=== PATIENT | female | born 1995 | race Hispanic/Latino ===

== ENCOUNTER 2017-02-13 08:08 | Emergency (ER) | payer BC ==
[2017-02-13 08:15] VITALS: BMI 21.2
[2017-02-13] MEDS ORDERED: Sodium Chloride 0.9% 1,000 ML IV STA (08:32)
--- NOTE | 2017-02-13 08:35 | ED PDOC ---
HPI: Female Pain Time Seen by Provider: 02/13/17 08:17 Chief Complaint (Nursing): Back Pain Chief Complaint (Provider): right flank pain History Per: Patient History/Exam Limitations: no limitations Onset/Duration Of Symptoms: Mins (prior to arrival ) Additional Complaint(s): Chantal Ghotra is a 21 year old female, with a previous medical history of kidney stones, who presents to the ED with complaints of right flank pain associated with dysuria, frequency and nausea ongoing since this morning. Patient reports symptoms are consistent with previous symptoms of kidney stones. she denies any fever or chills. PMD: none provided Abnormal Vaginal Bleeding: No Past Medical History Reviewed: Historical Data, Nursing Documentation, Vital Signs Vital Signs: Last Vital Signs Temp 97 F L 02/13/17 08:14 Pulse 64 02/13/17 08:14 Resp BP 113/69 02/13/17 08:14 Pulse Ox 98 02/13/17 08:14 - Medical History PMH: No Chronic Diseases - Surgical History Surgical History: No Surg Hx - Family History Family History: States: Unknown Family Hx - Home Medications Home Medications: Ambulatory Orders Medication Instructions Recorded Acetaminophen with Codeine 1 tab PO Q6H PRN #10 tab 02/13/17 [Tylenol with Codeine No. 3 300 mg-30 mg] Naproxen [Naprosyn] 500 mg PO BID PRN #15 tablet 02/13/17 Nitrofurantoin Macrocrystals 100 mg PO BID #14 cap 02/13/17 [Macrobid] Tamsulosin [Flomax] 0.4 mg PO DAILY #14 cap 02/13/17 - Allergies Allergies/Adverse Reactions: Allergies Allergy/AdvReac Type Severity Reaction Status Date / Time No Known Allergies Allergy Verified 02/13/17 08:24 Review of Systems ROS Statement: Except As Marked, All Systems Reviewed And Found Negative Constitutional: Negative for: Fever, Chills Gastrointestinal: Positive for: Nausea, Abdominal Pain. Negative for: Vomiting Genitourinary Female: Positive for: Dysuria, Frequency Musculoskeletal: Positive for: Back Pain (right flank ) Physical Exam - Reviewed Nursing Documentation Reviewed: Yes Vital Signs Reviewed: Yes - Physical Exam Appears: Positive for: Non-toxic, In Acute Distress (moderate painful) Head Exam: Positive for: ATRAUMATIC, NORMAL INSPECTION, NORMOCEPHALIC Skin: Positive for: Normal Color, Warm, DRY Eye Exam: Positive for: EOMI, Normal appearance, PERRL ENT: Positive for: Normal ENT Inspection Neck: Positive for: Normal, Painless ROM Cardiovascular/Chest: Positive for: Regular Rate, Rhythm Respiratory: Positive for: CNT, Normal Breath Sounds Gastrointestinal/Abdominal: Positive for: Normal Exam, Bowel Sounds, Soft. Negative for: Tenderness Back: Positive for: Normal Inspection. Negative for: L CVA Tenderness, R CVA Tenderness, Vertebral Tenderness Extremity: Positive for: Normal ROM Neurologic/Psych: Positive for: Alert, Oriented - Laboratory Results Result Diagrams: 02/13/17 08:52 02/13/17 08:52 - ECG O2 Sat by Pulse Oximetry: 98 (RA) Pulse Ox Interpretation: Normal - CT Scan/US CT abd/pelvis Other Rad Studies (CT/US): Radiology Report Reviewed (Right-sided nephrolithiasis as above. There is mild dilatation right ureter with an approximately 4 mm calcification in the expected region of the right UVJ. This probably represents represent UVJ calculus. Clinical correlation with urinalysis. Mild wall thickening urinary bladder likely due to incomplete distention however possibility of a cystitis not excluded. ) Medical Decision Making Medical Decision Making: Initial Plan: * CT abd & pelvis w/o contrast * labs * urine * urine dipstick * urinalysis * urine culture * PTT * PT * IV NS 1,000 ml at 1,000 ml/hr * toradol 15 mg IV * zofran 4 mg IV * reevaluation Scribe Attestation: Documented by Varsha Major, acting as a scribe for Varsha Jimenez MD. Provider Scribe Attestation: All medical record entries made by the Scribe were at my direction and personally dictated by me. I have reviewed the chart and agree that the record accurately reflects my personal performance of the history, physical exam, medical decision making, and the department course for this patient. I have also personally directed, reviewed, and agree with the discharge instructions and disposition. Disposition - Clinical Impression Clinical Impression: Ureteral calculus, UTI (urinary tract infection) - Patient ED Disposition Is Patient to be Admitted: No - Disposition Referrals: Vargas Carballo MD [Medical Doctor] - [facility] [Outside] Disposition: Routine/Home Disposition Time: 10:40 Condition: STABLE Prescriptions: Acetaminophen with Codeine [Tylenol with Codeine No. 3 300 mg-30 mg] 1 tab PO Q6H PRN #10 tab PRN Reason: Pain, Severe (8-10) Naproxen [Naprosyn] 500 mg PO BID PRN #15 tablet PRN Reason: Pain, Moderate (4-7) Nitrofurantoin Macrocrystals [Macrobid] 100 mg PO BID #14 cap Tamsulosin [Flomax] 0.4 mg PO DAILY #14 cap Instructions: Renal Colic (ED), Ureteral Stones (ED), Urinary Tract Infection in Women (ED)
[2017-02-13 08:59] LABS: BASO # 0.1 K/uL (0.0-0.2); BASO % 0.6 % (0.0-2.0); EOS # 0.2 K/uL (0.0-0.7); EOS % 2.5 % (0.0-4.0); HEMOGLOBIN 11.6 g/dL (12.0-16.0); LYMPH # 3.6 K/uL (1.0-4.3); LYMPH % 41.4 % (20.0-40.0); MEAN CELL VOLUME 85.8 fl (81.0-99.0); MEAN CORPUSCULAR HEMOGLOBIN 28.6 pg (27.0-31.0); MEAN CORPUSCULAR HGB CONC 33.3 g/dL (33.0-37.0); MEAN PLATELET VOLUME 7.7 fl (7.2-11.7); MONO # 0.8 K/uL (0.0-0.8); MONO % 9.4 % (0.0-10.0); NEUT % 46.1 % (50.0-75.0); NRBC % 0.1 % (0.0-0.0); RBC 4.07 Mil/uL (3.80-5.20); RED CELL DISTRIBUTION WIDTH 13.1 % (11.5-14.5); WHITE BLOOD COUNT 8.6 K/uL (4.8-10.8)
[2017-02-13 09:18] LABS: ALB/GLOB RATIO 1.3 (1.0-2.1); ALBUMIN 4.3 g/dL (3.5-5.0); ALT/SGPT 27 U/L (9-52); AST/SGOT 24 U/L (14-36); BLOOD UREA NITROGEN 17 mg/dl (7-17); CALCIUM 9.6 mg/dL (8.4-10.2); GFR AFRICAN-AMERICAN > 60; GFR NON-AFRICAN AMERICAN > 60
[2017-02-13 09:19] LABS: SQUAMOUS EPITHIAL 42 /hpf (0-5); URINE BACTERIA FEW (<OCC); URINE BILIRUBIN NEGATIVE (NEGATIVE); URINE BLOOD SMALL (NEGATIVE); URINE CLARITY CLOUDY (Clear); URINE COLOR YELLOW (YELLOW); URINE GLUCOSE (UA) NEG (Normal); URINE LEUKOCYTE ESTERASE SMALL Leu/uL (Negative); URINE NITRATE NEGATIVE (NEGATIVE); URINE PROTEIN 100 mg/dL (NEGATIVE); URINE UROBILINOGEN 0.2-1.0 mg/dL (0.2-1.0)
[2017-02-13] MEDS ORDERED: cefTRIAXone (Rocephin) 1 gm Inj ONE (09:54)
[2017-02-13 10:04] LABS: PARTIAL THROMBOPLASTIN TIME 28.5 Seconds (25.6-37.1)
--- NOTE | 2017-02-13 10:28 | CT ---
PROCEDURE: CT abdomen pelvis dated 02/13/2017 HISTORY: R flank pain COMPARISON: No prior. TECHNIQUE: Contiguous axial images of the abdomen and pelvis. Oral contrast was administered. No IV contrast given. Coronal and Sagittal reformats generated. Radiation dose: Total exam DLP = 363.33 mGy-cm. This CT exam was performed using one or more of the following dose reduction techniques: Automated exposure control, adjustment of the mA and/or kV according to patient size, and/or use of iterative reconstruction technique. FINDINGS: LOWER THORAX: Lung bases clear. LIVER: Liver is upper limits of normal/ borderline enlarged measuring just over 18 cm in CC dimension. No obvious hepatic mass collection or calcification. GALLBLADDER AND BILE DUCTS: Unremarkable. PANCREAS: Unremarkable. No mass. No ductal dilatation. SPLEEN: Unremarkable. No splenomegaly. ADRENALS: Unremarkable. KIDNEYS AND URETERS: There is an approximately 4.8 mm calculus within the mid to lower pole right renal collecting system. Few scattered punctate calcifications throughout the upper and lower pole collecting system also felt be present. There is very mild dilatation of the right ureter with an approximate 4 mm elliptical shaped calcification in the expected location of the right UVJ. Clinical correlation with urinalysis recommended. Note made of areas of increased attenuation along the pyramid regions of left kidney which could be secondary to hydration status however microcalcification not excluded. No obvious renal masses or collections. BLADDER: Urinary bladder is incompletely distended which may account for slight thick-walled appearance. Rule out cystitis. REPRODUCTIVE: Uterus and adnexal structures appear grossly unremarkable. APPENDIX: Normal-appearing appendix of best seen on coronal image number [id number]. No periappendiceal inflammatory changes. BOWEL: Evaluation of the bowel is limited due to the lack of oral contrast material. The the stomach is incompletely distended which may account for slight thick-walled appearance. Visualized loops of small bowel exhibit normal contour and caliber. No evidence of acute mechanical small bowel obstruction. . Moderate amount of stool seen throughout the colon consistent with mild fecal retention. No evidence of mural wall thickening. PERITONEUM: Unremarkable. No fluid collection. No free air. LYMPH NODES: Unremarkable. No enlarged lymph nodes. VASCULATURE: Unremarkable. No aortic aneurysm. BONES: No fracture or destructive lesion. OTHER FINDINGS: None. IMPRESSION: Right-sided nephrolithiasis as above. There is mild dilatation right ureter with an approximately 4 mm calcification in the expected region of the right UVJ. This probably represents represent UVJ calculus. Clinical correlation with urinalysis. Mild wall thickening urinary bladder likely due to incomplete distention however possibility of a cystitis not excluded. See above discussion for additional details and findings. Findings discussed with Dr. Jimenez at 10:25 a.m. with written down and read back verification.
[2017-02-13 11:16] VITALS: BP 122/68; PULSE 78; RESP 14; TEMP 98; O2SAT 100
== END 2017-02-13 11:08 | disposition home or self-care (01) ==
LOC: H.ER 08:08
DX: N20.2 Calculus of kidney with calculus of ureter (principal); N39.0 Urinary tract infection, site not specified
CPT/HCPCS: 74176; 80053; 81003; 81025; 85025; 85610; 85730; 87086; 96374; 96375; 99285; J0696; J1885; J2270; J2405; J7040

== ENCOUNTER 2017-02-16 10:12 | Emergency (ER) | payer BC ==
[2017-02-16 10:12] VITALS: BMI 21.2
[2017-02-16 10:36] VITALS: O2SAT 100
[2017-02-16] MEDS ORDERED: Sodium Chloride 0.9% 1,000 ML IV STA ×2 (10:53→13:48)
--- NOTE | 2017-02-16 11:22 | ED PDOC ---
HPI: Back Time Seen by Provider: 02/16/17 10:40 Chief Complaint (Nursing): Back Pain Chief Complaint (Provider): FLANK PAIN History Per: Patient (21 Y/O FEMALE HERE WITH RIGHT FLANK PAIN THAT BEGAN TODAY AM RADIATING TO RIGHT LOWER ABDOMEN. PATIENT WAS SEEN RECENTLY 02/13/2017 FOR RENAL COLIC. STATES SHE DID NOT HAVE REPEAT EPISODE OF PAIN UNTIL TODAY AM. DENIES ANY FEVERS/CHILLS. DID NOT MAKE APPT WITH UROLOGY OF YET.) Past Medical History Reviewed: Historical Data, Nursing Documentation, Vital Signs Vital Signs: Last Vital Signs Temp 97.0 F L 02/16/17 10:33 Pulse 61 02/16/17 10:33 Resp 19 02/16/17 10:33 BP 104/68 02/16/17 10:33 Pulse Ox 100 02/16/17 10:33 - Medical History PMH: Kidney Stones, Chronic Kidney Disease - Family History Family History: States: Unknown Family Hx - Home Medications Home Medications: Ambulatory Orders Medication Instructions Recorded Acetaminophen with Codeine 1 tab PO Q6H PRN #10 tab 02/13/17 [Tylenol with Codeine No. 3 300 mg-30 mg] Naproxen [Naprosyn] 500 mg PO BID PRN #15 tablet 02/13/17 Nitrofurantoin Macrocrystals 100 mg PO BID #14 cap 02/13/17 [Macrobid] Tamsulosin [Flomax] 0.4 mg PO DAILY #14 cap 02/13/17 Acetaminophen/Hydrocodone Bi 1 tab PO Q6 PRN #10 tab 02/16/17 [Vicodin 300 mg-5 mg] Naproxen [Naprosyn Tab] 375 mg PO Q8 PRN #21 tab 02/16/17 Tamsulosin [Flomax] 0.4 mg PO DAILY #14 cap 02/16/17 - Allergies Allergies/Adverse Reactions: Allergies Allergy/AdvReac Type Severity Reaction Status Date / Time No Known Allergies Allergy Verified 02/13/17 08:24 Review of Systems ROS Statement: Except As Marked, All Systems Reviewed And Found Negative Musculoskeletal: Positive for: Back Pain Physical Exam - Reviewed Nursing Documentation Reviewed: Yes Vital Signs Reviewed: Yes - Physical Exam Appears: Positive for: Well, Non-toxic, No Acute Distress Head Exam: Positive for: ATRAUMATIC, NORMAL INSPECTION, NORMOCEPHALIC Skin: Positive for: Normal Color, Warm, DRY Eye Exam: Positive for: EOMI, Normal appearance, PERRL ENT: Positive for: Normal ENT Inspection Neck: Positive for: Normal, Painless ROM Cardiovascular/Chest: Positive for: Regular Rate, Rhythm Respiratory: Positive for: CNT, Normal Breath Sounds Gastrointestinal/Abdominal: Positive for: Normal Exam, Bowel Sounds, Soft, Other (RIGHT CVA TENDERNESS.) Back: Positive for: Normal Inspection Extremity: Positive for: Normal ROM Neurologic/Psych: Positive for: Alert, Oriented - Laboratory Results Result Diagrams: 02/16/17 11:53 02/16/17 11:53 Urine POC: Negative Urine dip results: Negative for: Leukocyte Esterase, Blood, Nitrate, Ketones, Glucose, Bilirubin, Protein - ECG O2 Sat by Pulse Oximetry: 100 - Progress ED Course And Treament: OLD ED RECORDS REVIEWED: PATIENT NOTED TO HAVE 4MM ELLIPTICAL RENAL CALCULI RIGHT UVJ; URINE CX NEG; BUN/CREATININE WNL TORADOL 15 MG IV X 1 DOSE NS 1 LITER WIDE OPEN ZOFRAN 4 MG IV X 1 DOSE d/w Dr. Carballo Flomax 0.4 mg po x 1 dose NS 2nd liter rENAL US: MILD RIGHT HYDRONEPHROSIS NOTED. Disposition - Clinical Impression Clinical Impression: Renal colic on right side - Patient ED Disposition Is Patient to be Admitted: No - Disposition Referrals: Vargas Carballo MD [Medical Doctor] - Disposition: Routine/Home Disposition Time: 13:50 Condition: FAIR Additional Instructions: F/U WITH DR. CARBALLO TOMORROW AFTERNOON Prescriptions: Acetaminophen/Hydrocodone Bi [Vicodin 300 mg-5 mg] 1 tab PO Q6 PRN #10 tab PRN Reason: Pain, Severe (8-10) Naproxen [Naprosyn Tab] 375 mg PO Q8 PRN #21 tab PRN Reason: Pain, Moderate (4-7) Tamsulosin [Flomax] 0.4 mg PO DAILY #14 cap Instructions: Renal Colic (ED) Forms: [facility] ED School/Work Excuse
[2017-02-16 11:59] LABS: BASO # 0.1 K/uL (0.0-0.2); BASO % 0.5 % (0.0-2.0); EOS # 0.1 K/uL (0.0-0.7); HEMOGLOBIN 10.7 g/dL (12.0-16.0); LYMPH # 1.7 K/uL (1.0-4.3); LYMPH % 15.9 % (20.0-40.0); MEAN CORPUSCULAR HEMOGLOBIN 28.8 pg (27.0-31.0); MEAN CORPUSCULAR HGB CONC 33.5 g/dL (33.0-37.0); MEAN PLATELET VOLUME 7.6 fl (7.2-11.7); MONO # 0.7 K/uL (0.0-0.8); MONO % 6.2 % (0.0-10.0); NEUT # 8.2 K/uL (1.8-7.0); NEUT % 76.4 % (50.0-75.0); RBC 3.7 Mil/uL (3.80-5.20); RED CELL DISTRIBUTION WIDTH 12.8 % (11.5-14.5); WHITE BLOOD COUNT 10.8 K/uL (4.8-10.8)
[2017-02-16 12:13] LABS: ALB/GLOB RATIO 1.3 (1.0-2.1); ALBUMIN 4.2 g/dL (3.5-5.0); ALT/SGPT 16 U/L (9-52); AST/SGOT 31 U/L (14-36); BLOOD UREA NITROGEN 12 mg/dl (7-17); CALCIUM 9.1 mg/dL (8.4-10.2); GFR AFRICAN-AMERICAN > 60; GFR NON-AFRICAN AMERICAN > 60
--- NOTE | 2017-02-16 13:17 | US ---
PROCEDURE: Ultrasound of the Kidneys HISTORY: flank pain evaluate for hydronephrosis right side COMPARISON: None available. TECHNIQUE: Sonogram of the kidneys. FINDINGS: RIGHT KIDNEY: Measures: 4.5 x 11 cm. Normal in size, contour and echogenicity. Echogenic focus mid pole region likely calculus within the midpole calyx. Mild fullness of the left collecting system identified. Incidental finding(s): 9 x 13 mm simple cyst upper pole LEFT KIDNEY: Measures: 5.5 x 10.9 cm. Normal in size, contour and echogenicity. No stone, solid mass lesion or hydronephrosis visualized. OTHER FINDINGS: None. IMPRESSION: Mild, unilateral right hydronephrosis. Subcentimeter calculus midpole calyx right kidney
[2017-02-16 15:55] VITALS: BP 101/64; PULSE 62; RESP 18; TEMP 98.3
== END 2017-02-16 16:04 | disposition home or self-care (01) ==
LOC: H.ER 10:12
DX: N13.30 Unspecified hydronephrosis (principal)
CPT/HCPCS: 76770; 80053; 81025; 85025; 87086; 96361; 96374; 96375; 99284; J1885; J2405; J7040